=== PATIENT | female | born 1995 | race Two or more races ===

== ENCOUNTER 2016-09-10 21:18 | Emergency (ER) | payer SELFPAY ==
[2016-09-10 21:29] VITALS: TEMP 97.7
--- NOTE | 2016-09-10 22:31 | CPEKG ---
Heart Rate: 67 RR Interval: 896 P-R Interval: 180 QRSD Interval: 82 QT Interval: 400 QTC Interval: 423 P [place]: 18 QRS [place]: 81 T Wave [place]: 56 EKG Severity - NORMAL ECG - EKG Impression: SINUS RHYTHM Electronically Signed By: Miguel Ángel Marin 11-Sep-2016 09:01:52
[2016-09-10] MEDS ORDERED: IBUPROFEN 200 MG TAB PO ONE ×2 (22:46→22:51)
--- NOTE | 2016-09-10 22:49 | EDPHY ---
H & P Stated Complaint: R upper chest pain began at 1400 after going to gym, [place] Time Seen by Provider: 09/10/16 22:39 HPI/ROS: Chief complaint: Right-sided neck and upper chest pain HPI: Patient presenting at complaining of pain in the right side of her neck and right upper chest. This occurred after she went to the gym today. Has had some mild frontal headache as well. Denies any fevers or chills. No shortness of breath. No cough. Has not taken any medication for this. At worst is 3 on 10. No recent travel or long periods of immobility. No recent injuries. ROS: 10 point Review of Systems is negative except as noted in the HPI. Past medical history: None Medications: None Allergies: No known drug allergies Social history: She smokes, drinks occasional alcohol, uses occasional marijuana Physical exam: Gen: Awake, Alert, No Distress HEENT: Ears: Bilateral TMs are normal, no erythema or bulging. External auditory canals are clear. Nose: no rhinorrhea Eyes: PERRLA, EOMI Mouth: Moist mucosa mild pharyngeal erythema without exudate Neck: Supple, no JVD, mild right cervical lymphadenopathy with mild tenderness reproducing presenting complaint, no bruits, no fluctuance or masses Chest: nontender, lungs clear to auscultation Heart: S1, S2 normal, no murmur Abd: Soft, non-tender, no guarding Back: no CVA tenderness, no midline tenderness Ext: no edema, non-tender Skin: no rash Neuro: CN II-XII intact, Sensation grossly intact, Strength 5/5 in bilateral upper and lower extremities - Personal History LMP (Females 10-55): Extended Cycle BCP/Inj Current Tetanus/Diphtheria Vaccine: Yes Current Tetanus Diphtheria and Acellular Pertussis (TDAP): Yes Tetanus Vaccine Date: 2007 - Medical/Surgical History Hx Asthma: No Hx Chronic Respiratory Disease: No Hx Diabetes: No Hx Cardiac Disease: No Hx Renal Disease: No Hx Cirrhosis: No Hx Alcoholism: No Hx HIV/AIDS: No Hx Splenectomy or Spleen Trauma: No Other PMH: PNA as a young child. wisdom tooth extraction - Social History Smoking Status: Light smoker Constitutional: Initial Vital Signs Temperature (C) 36.5 C 09/10/16 21:27 Heart Rate 75 09/10/16 21:27 Respiratory Rate 18 09/10/16 21:27 Blood Pressure 116/73 09/10/16 21:27 O2 Sat (%) 97 09/10/16 21:27 O2 Delivery Mode Room Air Allergies/Adverse Reactions: No Known Allergies Allergy (Unverified 09/10/16 21:26) Home Medications: Medication Instructions Recorded Nexplanon 09/10/16 Medical Decision Making ED Course/Re-evaluation: 20-year-old presenting with some mild right cervical lymphadenopathy, some mild pharyngeal erythema. Symptoms are consistent with a viral upper respiratory infection. Her ears are clear. She has no exudate. Lungs are clear chest wall is nontender. Patient will be given anti-inflammatories here. Instructions to alternate acetaminophen and ibuprofen. Drink plenty of fluids. [facility] days if symptoms are not improving. Departure - Departure Disposition: Home, Routine, Self-Care Clinical Impression: Viral upper respiratory infection Condition: Good Instructions: Viral Syndrome (ED) Additional Instructions: You may alternate ibuprofen and acetaminophen every 4 hours for fevers, chills, aches or pains. Drink plenty of fluids. Follow up at [facility] [place] in 3-4 days if symptoms are not improving. Referrals: [facility] [place] [Outside] - As per Instructions
[2016-09-10 22:53] VITALS: BP 114/78; PULSE 72; RESP 16; O2SAT 96
== END 2016-09-10 23:01 | disposition home or self-care (01) ==
DX: J06.9 Acute upper respiratory infection, unspecified (principal); F17.200 Nicotine dependence, unspecified, uncomplicated